=== PATIENT | female | born 1960 | race Asian ===

== ENCOUNTER 2020-01-07 11:46 | Emergency (ER) | payer OTHER ==
[~2020-01-07] VITALS: Ht 157.5 cm; Wt 52.2 kg
--- NOTE | 2020-01-07 11:50 | NUR ---
patient came in to the er c/o body aches and sob x 4 days. On room air, breathing evenly and unlabored. connected to the monitor and pulse ox. kept comfortable, will continue to monitor accordingly.
[2020-01-07 12:30] VITALS: BP 129/81
--- NOTE | 2020-01-07 12:31 | NUR ---
Patient discharged to home in stable condition. Written and verbal after care instructions given. Patient verbalizes understanding of instruction.
== END 2020-01-07 12:31 | disposition home or self-care (01) ==
LOC: ER 11:54
DX: R06.02 Shortness of breath (principal); M79.10 Myalgia, unspecified site; R11.0 Nausea; Z20.828 Contact with and (suspected) exposure to other viral communicable diseases
CPT/HCPCS: 99283; C9803; U0003

== ENCOUNTER 2025-03-18 08:39 | Emergency (ER) | payer OTHER ==
[~2025-03-18] VITALS: Ht 157.5 cm; Wt 56.2 kg
[2025-03-18] MEDS ORDERED: MAG HYDROX/AL HYDROX/SIMETH 30 ML UDC ONE (09:11)
[2025-03-18] MEDS ORDERED: PANTOPRAZOLE 40 MG VIAL ONE (09:11)
[2025-03-18] MEDS ORDERED: ACETAMINOPHEN 325 MG TABLET ONE (09:12)
[2025-03-18] MEDS: MAG HYDROX/AL HYDROX/SIMETH 30 ML UDC PO ONE (09:14)
[2025-03-18] MEDS: PANTOPRAZOLE 40 MG VIAL IV ONE (09:14)
[2025-03-18] MEDS: ACETAMINOPHEN 325 MG TABLET PO ONE (09:14)
[2025-03-18 09:23] LABS: PLATELET COUNT (AUTO) 374 K/uL (150-450); RED BLOOD CELL COUNT(AUTO) 4.67 MIL/uL (4.0-5.2); RED CELL DISTRIBUTION WIDTH 14.1 % (11.5-15.0); WHITE BLOOD COUNT (AUTO) 6.6 K/uL (4.3-11.0)
[2025-03-18 09:30] LABS: CALCIUM, SERUM 9.6 mg/dL (8.5-10.1); CREATININE 0.9 mg/dL (0.6-1.3); SODIUM SERUM 141 mmol/L (136-145); UREA NITROGEN, BLOOD 10 mg/dL (7-18)
[2025-03-18 09:44] LABS: ASPARTATE AMINOTRANSFERASE 29 U/L (15-37); NT-PRO BNP 39 pg/mL (0-125); TOTAL PROTEIN, SERUM 8.8 g/dL (6.4-8.2)
[2025-03-18 13:19] VITALS: BP 150/70; TEMP 98.7; O2SAT 99
== END 2025-03-18 13:20 | disposition home or self-care (01) ==
LOC: ER 08:41
DX: R07.81 Pleurodynia (principal); R07.89 Other chest pain; R53.83 Other fatigue; R11.0 Nausea; R06.02 Shortness of breath; E11.9 Type 2 diabetes mellitus without complications; E78.5 Hyperlipidemia, unspecified; I51.9 Heart disease, unspecified; Z79.84 Long term (current) use of oral hypoglycemic drugs
CPT/HCPCS: 99285; 71045; 93005 ×2; 85025; 80048; 80076; 85378; 36415; 84484 ×2; 83880; 82962; J2470